=== PATIENT | female | born 1940 | race Caucasian/White ===

== ENCOUNTER 2017-02-12 20:36 | Inpatient (IN) | payer MEDICARE, OTHER ==
[~2017-02-12] VITALS: Ht 170.2 cm; Wt 83.2 kg
[2017-02-12] MEDS ORDERED: SODIUM CHLORIDE 0.9% 1,000 ML IV ONE (21:08)
[2017-02-12 21:28] LABS: HEMATOCRIT 42.8 % (34.6-47.8); HEMOGLOBIN 14.2 g/dL (11.7-16.4); WHITE BLOOD COUNT 8.5 x10^3/uL (3.4-10)
[2017-02-12] MEDS ORDERED: SODIUM CHLORIDE 0.9% 1,000ML IVBOLUS ONE (21:30)
[2017-02-12 21:39] LABS: ASPARTATE AMINO TRANSFERASE 28 U/L (15-37); BLOOD UREA NITROGEN 15 mg/dL (7-18)
[2017-02-12] MEDS ORDERED: DILTIAZEM 125 MG in SODIUM CHLORIDE 0.9% 100 ML IV ONE (22:19)
[2017-02-12] MEDS ORDERED: DILTIAZEM 5 MG/ML, 5ML ONE (22:25)
[2017-02-12] MEDS ORDERED: DILTIAZEM 5 MG/ML, 5ML IVPush ONE (22:30)
[2017-02-12] MEDS ORDERED: ENOXAPARIN 80 MG/0.8 ML SQ ONE (23:30)
[2017-02-13] MEDS ORDERED: ENOXAPARIN 80 MG/0.8 ML ONE (00:28)
[2017-02-13] MEDS: ENOXAPARIN 30 MG/0.3 ML SQ SCH ×2 (01:00→12:53)
[2017-02-13] MEDS ORDERED: LEVOFLOXACIN/PMX 750MG/150ML IVPB SCH (01:00)
[2017-02-13] MEDS ORDERED: BISACODYL 10 MG SUPP PR PRN (01:00)
[2017-02-13] MEDS ORDERED: ACETAMINOPHEN 325 MG TABLET PO PRN (01:00)
[2017-02-13] MEDS ORDERED: ONDANSETRON ODT 4 MG PO PRN (01:00)
[2017-02-13] MEDS ORDERED: DOCUSATE 100 MG CAPSULE PO PRN (01:00)
[2017-02-13] MEDS ORDERED: CEFTRIAXONE 1,000 MG IM SCH (01:00)
[2017-02-13 02:01] LABS: IS PT STATUS REG ER OR PRE ER? YES
[2017-02-13] MEDS: SODIUM CHLORIDE 0.9% 1,000 ML IV SCH ×2 (02:07→17:27)
[2017-02-13 02:30] VITALS: BP 104/66
[2017-02-13] MEDS ORDERED: ALBUTEROL SULFATE 2.5 MG/3 ML NPPB PRN (04:00)
[2017-02-13] MEDS: LEVOFLOXACIN/PMX 750MG/150ML 150 ML IV SCH (04:53)
[2017-02-13 07:18] VITALS: BP 93/59
[2017-02-13 13:12] LABS: PATH.CAST-FLAG NOT PRESENT; SPERM-FLAG NOT PRESENT; SRC-FLAG NOT PRESENT; XTAL-FLAG NOT PRESENT; YLC-FLAG NOT PRESENT
[2017-02-13 13:16] VITALS: BP 100/62
[2017-02-13 19:23] VITALS: BP 123/66
[2017-02-14] MEDS: SODIUM CHLORIDE 0.9% 1,000 ML IV SCH (00:41)
[2017-02-14] MEDS: ENOXAPARIN 30 MG/0.3 ML SQ SCH ×2 (00:43→12:59)
[2017-02-14 00:55] VITALS: BP 144/83
[2017-02-14] MEDS: LEVOFLOXACIN/PMX 750MG/150ML 150 ML IV SCH (03:25)
[2017-02-14 05:52] LABS: HEMATOCRIT 36.9 % (34.6-47.8); HEMOGLOBIN 12.5 g/dL (11.7-16.4); WHITE BLOOD COUNT 6.9 x10^3/uL (3.4-10)
[2017-02-14 05:59] LABS: ASPARTATE AMINO TRANSFERASE 21 U/L (15-37); BLOOD UREA NITROGEN 10 mg/dL (7-18)
[2017-02-14 06:40] VITALS: BP 157/80
[2017-02-14 12:53] VITALS: BP 155/78
[2017-02-14] MEDS: GUAIFENESIN 200 MG TABLET PO SCH ×3 (13:00→20:40)
[2017-02-14] MEDS ORDERED: SIMV10TA3 PO (13:59)
[2017-02-14] MEDS ORDERED: LISI5TAB7 PO (13:59)
[2017-02-14] MEDS ORDERED: LEVO112T4 PO (14:00)
[2017-02-14] MEDS ORDERED: ASPI325T17 PO (14:04)
[2017-02-14 18:57] VITALS: BP 153/70
[2017-02-15] MEDS: ENOXAPARIN 30 MG/0.3 ML SQ SCH ×2 (01:33→14:26)
[2017-02-15 01:49] VITALS: BP 158/76
[2017-02-15] MEDS: LEVOFLOXACIN/PMX 750MG/150ML 150 ML IV SCH (03:23)
[2017-02-15] MEDS: GUAIFENESIN 200 MG TABLET PO SCH ×4 (06:09→20:52)
[2017-02-15 07:10] VITALS: BP 159/72
[2017-02-15] MEDS: METOPROLOL TARTRATE 25 MG TABLET PO SCH ×2 (09:08→17:32)
[2017-02-15 12:54] VITALS: BP 146/89
[2017-02-15 17:30] VITALS: BP 181/82
[2017-02-15 20:00] VITALS: BP 170/82
[2017-02-15] MEDS ORDERED: hydrALAzine 20 MG/ML, 1ML IV PRN (23:00)
[2017-02-15 23:15] VITALS: BP 182/75
[2017-02-16 01:14] VITALS: BP 111/61
[2017-02-16] MEDS: METOPROLOL TARTRATE 25 MG TABLET PO SCH ×3 (01:52→16:50)
[2017-02-16] MEDS: ENOXAPARIN 30 MG/0.3 ML SQ SCH ×2 (03:35→16:51)
[2017-02-16] MEDS: LEVOFLOXACIN/PMX 750MG/150ML 150 ML IV SCH (03:35)
[2017-02-16] MEDS: GUAIFENESIN 200 MG TABLET PO SCH ×4 (05:43→21:20)
[2017-02-16 06:47] VITALS: BP 120/76
[2017-02-16] MEDS: ASPIRIN 325 MG TABLET EC PO SCH (10:05)
[2017-02-16 12:20] VITALS: BP 102/62
[2017-02-16 20:00] VITALS: BP 119/88
[2017-02-17 02:00] VITALS: BP 125/84
[2017-02-17] MEDS: METOPROLOL TARTRATE 25 MG TABLET PO SCH ×2 (02:09→08:42)
[2017-02-17] MEDS: LEVOFLOXACIN/PMX 750MG/150ML 150 ML IV SCH (04:05)
[2017-02-17 04:45] VITALS: BP 151/104
[2017-02-17] MEDS: ENOXAPARIN 30 MG/0.3 ML SQ SCH (04:48)
[2017-02-17 05:46] VITALS: BP 146/91
[2017-02-17 05:51] VITALS: BP 119/81
[2017-02-17] MEDS: ASPIRIN 325 MG TABLET EC PO SCH (06:14)
[2017-02-17] MEDS: GUAIFENESIN 200 MG TABLET PO SCH ×2 (06:14→11:19)
[2017-02-17 07:02] VITALS: BP 128/72
[2017-02-17] MEDS ORDERED: METO25TA91 PO (09:29)
[2017-02-17] MEDS ORDERED: LEVO500T47 PO (09:29)
== END 2017-02-17 12:00 | disposition home or self-care (01) | DRG 871 ==
LOC: ED 22:17 → EDIP 22:53 → 4EST 02-13 02:05
PROVIDERS: ADMIT Surgery; ATTEND Surgery
PROC: 0T9B70Z Drainage of Bladder with Drainage Device, Via Natural or Artificial Opening (ICD-10-PCS; principal; 2017-02-12)
DX: A41.9 Sepsis, unspecified organism (principal); J18.1 Lobar pneumonia, unspecified organism; J91.8 Pleural effusion in other conditions classified elsewhere; E11.65 Type 2 diabetes mellitus with hyperglycemia; D69.6 Thrombocytopenia, unspecified; I48.0 Paroxysmal atrial fibrillation; J44.0 Chronic obstructive pulmonary disease with (acute) lower respiratory infection; J44.1 Chronic obstructive pulmonary disease with (acute) exacerbation; F03.90 Unspecified dementia, unspecified severity, without behavioral disturbance, psychotic disturbance, mood disturbance, and anxiety; E78.5 Hyperlipidemia, unspecified; Z95.0 Presence of cardiac pacemaker; R04.0 Epistaxis; Z88.2 Allergy status to sulfonamides; E03.9 Hypothyroidism, unspecified; I10 Essential (primary) hypertension; I87.2 Venous insufficiency (chronic) (peripheral); J20.8 Acute bronchitis due to other specified organisms; K21.9 Gastro-esophageal reflux disease without esophagitis; R09.02 Hypoxemia; Z86.72 Personal history of thrombophlebitis; Z87.891 Personal history of nicotine dependence; Z90.49 Acquired absence of other specified parts of digestive tract
CPT/HCPCS: 36415; 71010; 71020; 80053; 80061; 81001; 83036; 83735; 84100; 84443; 84484; 85025; 85610; 85730; 87040; 87086; 93005; 96361; 96365; 96366; 96372; 96375; J1650; J1956; J7613; Q0162; J0360; J7030

== ENCOUNTER → 2017-12-07 | Outpatient (CLI) | payer MEDICARE, OTHER ==
[~2017-12-07] MED LIST: ASPI325T17 PO; LEVO112T4 PO; LEVO500T47 PO; LISI5TAB7 PO; METO25TA91 PO; SIMV10TA3 PO
== END | disposition home or self-care (01) ==
LOC: CFH 13:44
PROVIDERS: ATTEND Physician Assistant Medical
DX: I08.0 Rheumatic disorders of both mitral and aortic valves (principal); I10 Essential (primary) hypertension
CPT/HCPCS: 93306

== ENCOUNTER 2018-10-02 18:19 | Inpatient (IN) | payer MEDICARE, OTHER ==
[~2018-10-02] VITALS: Ht 167.6 cm; Wt 96.4 kg
[2018-10-14 09:03] VITALS: BP 158/74
== END 2018-10-14 13:41 | disposition home or self-care (01) | DRG 314 ==
LOC: ED 19:26 → EDIP 23:14 → CCU 10-03 01:34 → 5SO 10-04 11:29
PROVIDERS: ADMIT Internal Medicine; ATTEND Internal Medicine
PROC: 3E03317 Introduction of Other Thrombolytic into Peripheral Vein, Percutaneous Approach (ICD-10-PCS; 2018-10-02)
PROC: 0T9B70Z Drainage of Bladder with Drainage Device, Via Natural or Artificial Opening (ICD-10-PCS; principal; 2018-10-03)
PROC: 3E0336Z Introduction of Nutritional Substance into Peripheral Vein, Percutaneous Approach (ICD-10-PCS; 2018-10-03)
PROC: 06HM33Z Insertion of Infusion Device into Right Femoral Vein, Percutaneous Approach (ICD-10-PCS; 2018-10-03)
PROC: B54BZZA Ultrasonography of Right Lower Extremity Veins, Guidance (ICD-10-PCS; 2018-10-03)
PROC: 02HV33Z Insertion of Infusion Device into Superior Vena Cava, Percutaneous Approach (ICD-10-PCS; 2018-10-04)
PROC: B5181ZA Fluoroscopy of Superior Vena Cava using Low Osmolar Contrast, Guidance (ICD-10-PCS; 2018-10-04)
PROC: B548ZZA Ultrasonography of Superior Vena Cava, Guidance (ICD-10-PCS; 2018-10-04)
PROC: 0T9B70Z Drainage of Bladder with Drainage Device, Via Natural or Artificial Opening (ICD-10-PCS; 2018-10-07)
DX: T82.867A Thrombosis due to cardiac prosthetic devices, implants and grafts, initial encounter (principal); I26.09 Other pulmonary embolism with acute cor pulmonale; J96.01 Acute respiratory failure with hypoxia; D68.59 Other primary thrombophilia; I48.92 Unspecified atrial flutter; I82.411 Acute embolism and thrombosis of right femoral vein; I82.431 Acute embolism and thrombosis of right popliteal vein; D64.9 Anemia, unspecified; E11.9 Type 2 diabetes mellitus without complications; E78.5 Hyperlipidemia, unspecified; E89.0 Postprocedural hypothyroidism; F01.50 Vascular dementia, unspecified severity, without behavioral disturbance, psychotic disturbance, mood disturbance, and anxiety; I11.0 Hypertensive heart disease with heart failure; I45.10 Unspecified right bundle-branch block; I48.2 Chronic atrial fibrillation; I50.811 Acute right heart failure; I70.0 Atherosclerosis of aorta; I70.1 Atherosclerosis of renal artery; I87.2 Venous insufficiency (chronic) (peripheral); J44.9 Chronic obstructive pulmonary disease, unspecified; K21.9 Gastro-esophageal reflux disease without esophagitis; K80.20 Calculus of gallbladder without cholecystitis without obstruction; N28.9 Disorder of kidney and ureter, unspecified; I95.9 Hypotension, unspecified; Z66 Do not resuscitate; Y83.8 Other surgical procedures as the cause of abnormal reaction of the patient, or of later complication, without mention of misadventure at the time of the procedure; Z81.8 Family history of other mental and behavioral disorders; Z82.49 Family history of ischemic heart disease and other diseases of the circulatory system; Z87.891 Personal history of nicotine dependence; Z91.81 History of falling; Z95.0 Presence of cardiac pacemaker; Z90.49 Acquired absence of other specified parts of digestive tract; Y92.89 Other specified places as the place of occurrence of the external cause; Z85.850 Personal history of malignant neoplasm of thyroid; Z83.3 Family history of diabetes mellitus
CPT/HCPCS: 36415; 36556; 36573; 36600; 70450; 71045; 71275; 74174; 80048; 80053; 80061; 81001; 81003; 82803; 82962; 83036; 83735; 83880; 84436; 84443; 84484; 85025; 85520; 85610; 85730; 86480; 87081; 87086; 93005; 93306; 93970; 96372; 96374; 96375; 99152; 99292; G0378; J1644; J1650; J2405; J2997; J3480; J3486; Q9967; C1751; J0282; J0295; J0360; J1630; J1815; J2060; J3475; J3490; J7030; J7050; J7060